=== PATIENT | female | born 2000 ===

== ENCOUNTER 2020-10-23 18:59 | Emergency (ER) | payer BC ==
[~2020-10-23] VITALS: Ht 157.5 cm; Wt 49.0 kg
[2020-10-23] MEDS ORDERED: SERT50 PO (19:06)
[2020-10-23] MEDS ORDERED: Adderall 20 MG20 MG PO (19:06)
== END 2020-10-23 20:37 | disposition home or self-care (01) ==
LOC: ER 18:59
DX: R07.89 Other chest pain (principal); Z79.899 Other long term (current) drug therapy
CPT/HCPCS: 71046; 99283-25; A9270